=== PATIENT | male | born 1995 | race Caucasian/White ===

== ENCOUNTER 2017-03-03 03:46 | Emergency (ER) | payer OTHER ==
[~2017-03-03] VITALS: Ht 170.2 cm; Wt 91.4 kg
[2017-03-03 03:53] VITALS: TEMP 36.8; Ht 170.2 cm; Wt 91.4 kg
[2017-03-03 04:43] LABS: URINE APPEARANCE CLOUDY (CLEAR); URINE BILIRUBIN NEG (NEG); URINE COLOR DK YELLOW; URINE NITRITE NEG (NEG); URINE SPECIFIC GRAVITY 1.026 (1.000-1.030); UROBILINOGEN NEG (NEG); ZZUR CULT IF INDIC CLEAN CATCH NO
[2017-03-03 04:58] LABS: MANUAL MICROSCOPIC REQUIRED? NO; REVIEW REQ? NO
[2017-03-03] MEDS ORDERED: CHOL1000 PO (04:58)
[2017-03-03] MEDS ORDERED: LEVO150T PO (04:58)
[2017-03-03 05:04] LABS: BASO % 0.1 %; BASO ABS # 0.02 K/uL (0-0.2); COMPLETE YES; EOS % 0.1 %; HEMATOCRIT 47.5 % (42-52); IG% 0.3 %; LYMPH % 7.4 %; LYMPH ABS # 1.12 K/uL (1.2-3.4); MEAN CELL VOLUME 87.2 fL (80-100); MEAN CORPUSCULAR HEMOGLOBIN 30.5 pg (25-34); MEAN CORPUSCULAR HGB CONC 34.9 g/dl (32-36); MEAN PLATELET VOLUME 9.7 fL (7.4-10.4); MONO % 6.7 %; NEUT % 85.4 %; PLATELET COUNT 290 K/uL (130-400); RED BLOOD COUNT 5.45 M/uL (4.7-6.1); WHITE BLOOD COUNT 15.17 K/uL (4.8-10.8)
[2017-03-03 05:05] LABS: BENZODIAZEPINE, URINE NEG (NEG); COCAINE,URINE POS (NEG); PHENCYCLIDINE, URINE NEG (NEG)
[2017-03-03 05:24] LABS: BUN/CREATININE RATIO 11.9 (10-20); CALCIUM 8.9 mg/dl (8.5-10.1); CREATININE 0.97 mg/dl (0.60-1.40); POTASSIUM 3.6 mmol/L (3.5-5.1)
[2017-03-03 05:35] LABS: ALB/GLOB RATIO 1.2 (0.9-2); THYROID STIMULATING HORMONE 4.92 uIu/ml (0.300-4.500)
[2017-03-03 06:43] VITALS: BP 104/76; PULSE 99; O2SAT 96
--- NOTE | 2017-03-03 06:51 | EMERGENCY ROOM VISIT NOTE ---
History Report prepared by Estelle: Negrita Rosenthal Under the Supervision of: Dr. Nuha Minaya D.O. First contact with patient: 04:02 Chief Complaint: MENTAL HEALTH EVALUATION Stated Complaint: MENTAL HEALTH EVAL History of Present Illness The patient is a 21 year old male who presents to the Emergency Room for a mental health evaluation. The patient states that he drank 3 beers yesterday. He states that later in the evening he got into a fight over the phone with his girlfriend. He reports that he said some things he shouldn't have, took things too far, and are now embarrassed by it. He states that he is not suicidal. He reports that he has been with his girlfriend for 2 years and a fight has never escalated to this. The patient notes she was the one who wanted her to come in. He states that he would have done the same thing if he was in her place. He does not believe that alcohol played a role in the argument. The patient notes that he uses cigarettes and has hyperthyroidism. He states he has had hyperthyroidism since he was a kid and all his siblings have it, but his parents do not. He denies taking any drugs. Source of History: patient Onset: this morning Position: other (global) Quality: other (global) Timing: other (episode) Note: The patient denies being suicidal. Review of Systems Pt denies headache, change in vision, fevers, chest pain, shortness of breath, nausea, vomiting, diarrhea, pain with urination, and melena. Past Medical & Surgical Medical Problems: (1) Hyperthyroidism Family History FHx: hyperthyroidism Social History Smoking Status: Current Every Day Smoker Alcohol Use: occasionally Marital Status: in relationship Housing Status: lives with roommate Occupation Status: [employer] student Current/Historical Medications Scheduled Cholecalciferol (Vitamin D3), 1 TAB PO DAILY Levothyroxine Sodium (Synthroid), 150 MCG PO DAILY Allergies Coded Allergies: No Known Allergies (Unverified , 03/03/17) Physical Exam Vital Signs Date Time Temp Pulse Resp B/P (MAP) Pulse Ox O2 Delivery O2 Flow Rate FiO2 03/03/17 06:43 99 18 104/76 96 Room Air 03/03/17 03:53 36.8 118 18 135/79 95 Room Air Physical Exam GENERAL: alert, well appearing, well nourished, no distress, non-toxic EYE EXAM: normal conjunctiva, PERRL and EOM's grossly intact OROPHARYNX: no exudate, no erythema, lips, buccal mucosa, and tongue normal and mucous membranes are moist NECK: supple, no nuchal rigidity, no adenopathy, non-tender LUNGS: Clear to auscultation. Normal chest wall mechanics HEART: no murmurs, S1 normal and S2 normal ABDOMEN: abdomen soft, non-tender, normo-active bowel sounds, no masses, no rebound or guarding. BACK: Back is symmetrical on inspection and there is no deformity, no midline tenderness, no CVA tenderness. SKIN: no rashes and no bruising UPPER EXTREMITIES: upper extremities are grossly normal. LOWER EXTREMITIES: No pitting edema. NEURO EXAM: Normal sensorium, cranial nerves II-XII grossly intact, normal speech, no gross weakness of arms, no gross weakness of legs. PSYCH: patient is tearful. Denies depression. Denies SI. Medical Decision & Procedures Laboratory Results 03/03/17 04:41 Red Blood Count 5.45, Mean Corpuscular Volume 87.2, Mean Corpuscular Hemoglobin 30.5, Mean Corpuscular Hemoglobin Concent 34.9, Mean Platelet Volume 9.7, Neutrophils (%) (Auto) 85.4, Lymphocytes (%) (Auto) 7.4, Monocytes (%) (Auto) 6.7, Eosinophils (%) (Auto) 0.1, Basophils (%) (Auto) 0.1, Neutrophils # (Auto) 12.94, Lymphocytes # (Auto) 1.12, Monocytes # (Auto) 1.02, Eosinophils # (Auto) 0.02, Basophils # (Auto) 0.02 03/03/17 04:41 Test 03/03/17 04:20 03/03/17 04:41 Urine Color DK YELLOW Urine Appearance CLOUDY (CLEAR) Urine pH 7.0 (4.5-7.5) Urine Specific [place] 1.026 (1.000-1.030) Urine Protein NEG (NEG) Urine Glucose (UA) NEG (NEG) Urine Ketones 2+ (NEG) Urine Occult Blood TRACE (NEG) Urine Nitrite NEG (NEG) Urine Bilirubin NEG (NEG) Urine Urobilinogen NEG (NEG) Urine Leukocyte Esterase NEG (NEG) Urine WBC (Auto) 1-5 /hpf (0-5) Urine RBC (Auto) 5-10 /hpf (0-4) Urine Hyaline Casts (Auto) 1-5 /lpf (0-5) Urine Epithelial Cells (Auto) 10-20 /lpf (0-5) Urine Bacteria (Auto) NEG (NEG) Urine Opiates Screen NEG (NEG) Urine Methadone, Qualitative NEG (NEG) Urine Barbiturates NEG (NEG) Urine Phencyclidine (PCP) Level NEG (NEG) Ur Amphetamine/Methamphetamine NEG (NEG) MDMA (Ecstasy) Screen NEG (NEG) Urine Benzodiazepines Screen NEG (NEG) Urine Cocaine Metabolite POS (NEG) Urine Marijuana (THC) POS (NEG) White Blood Count 15.17 K/uL (4.8-10.8) Red Blood Count 5.45 M/uL (4.7-6.1) Hemoglobin 16.6 g/dL (14.0-18.0) Hematocrit 47.5 % (42-52) Mean Corpuscular Volume 87.2 fL (80-100) Mean Corpuscular Hemoglobin 30.5 pg (25-34) Mean Corpuscular Hemoglobin Concent 34.9 g/dl (32-36) Platelet Count 290 K/uL (130-400) Mean Platelet Volume 9.7 fL (7.4-10.4) Neutrophils (%) (Auto) 85.4 % Lymphocytes (%) (Auto) 7.4 % Monocytes (%) (Auto) 6.7 % Eosinophils (%) (Auto) 0.1 % Basophils (%) (Auto) 0.1 % Neutrophils # (Auto) 12.94 K/uL (1.4-6.5) Lymphocytes # (Auto) 1.12 K/uL (1.2-3.4) Monocytes # (Auto) 1.02 K/uL (0.11-0.59) Eosinophils # (Auto) 0.02 K/uL (0-0.5) Basophils # (Auto) 0.02 K/uL (0-0.2) RDW Standard Deviation 41.2 fL (36.4-46.3) RDW Coefficient of Variation 12.9 % (11.5-14.5) Immature Granulocyte % (Auto) 0.3 % Immature Granulocyte # (Auto) 0.05 K/uL (0.00-0.02) Anion Gap 11.0 mmol/L (3-11) Est Creatinine Clear Calc Drug Dose 131.0 ml/min Estimated GFR () 129.7 Estimated GFR (Non- 111.9 BUN/Creatinine Ratio 11.9 (10-20) Calcium Level 8.9 mg/dl (8.5-10.1) Total Bilirubin 0.5 mg/dl (0.2-1) Aspartate Amino Transf (AST/SGOT) 15 U/L (15-37) Alanine Aminotransferase (ALT/SGPT) 28 U/L (12-78) Alkaline Phosphatase 62 U/L (45-117) Total Protein 7.9 gm/dl (6.4-8.2) Albumin 4.3 gm/dl (3.4-5.0) Globulin 3.6 gm/dl (2.5-4.0) Albumin/Globulin Ratio 1.2 (0.9-2) Thyroid Stimulating Hormone (TSH) 4.920 uIu/ml (0.300-4.500) Ethyl Alcohol mg/dL 23.0 mg/dl (0-3) Laboratory results per my review. ED Course 0500: The patient was evaluated in room A6. A complete history and physical exam was performed. 0653: Upon reevaluation, the patient is feeling better. I discussed the findings and the treatment plan with the patient. He verbalizes agreement and understanding. The patient was discharged home. Medical Decision Etiologies such as mood disorder, infection, hypoglycemia, electrolyte abnormalities, cardiac sources, intracerebral event, toxicologic, neurologic, as well as others were entertained. She well-appearing here despite complaints. I do not feel he is an imminent risk to himself or others. No evidence of other infectious abdomen only. Doubt CVA, no evidence of the left right abnormality. Patient counseled on substance abuse. Medication Reconcilliation Current Medication List: was personally reviewed by me Blood Pressure Screening Patient's blood pressure: Normal blood pressure Impression Primary Impression: Stress reaction Additional Impression: Substance abuse Scribe Attestation The scribe's documentation has been prepared under my direction and personally reviewed by me in its entirety. I confirm that the note above accurately reflects all work, treatment, procedures, and medical decision making performed by me. Departure Information Dispostion Home / Self-Care Referrals No Doctor, Assigned (PCP) Forms HOME CARE DOCUMENTATION FORM, IMPORTANT VISIT INFORMATION Patient Instructions My [facility] Additional Instructions Please do not use illegal drugs. Please follow-up as recommended by the casework supervisor. If you have any new or concerning symptoms, please return the emergency room. Please continue your thyroid medication as prescribed. Problem Qualifiers
[2017-03-05 13:00] LABS: COCAINE, URINE 3480 NG/ML (CUTOFF=100)
== END 2017-03-03 06:56 | disposition home or self-care (01) ==
LOC: C.EDB 03:48 → C.EDA 06:56
DX: F43.9 Reaction to severe stress, unspecified (principal); F55.8 Abuse of other non-psychoactive substances; E05.90 Thyrotoxicosis, unspecified without thyrotoxic crisis or storm; F17.200 Nicotine dependence, unspecified, uncomplicated